=== PATIENT | male | born 1985 | race Caucasian/White ===

== ENCOUNTER 2019-10-12 12:29 | Emergency (ER) | payer OTHER ==
[~2019-10-12] VITALS: Ht 185.4 cm; Wt 97.7 kg
[2019-10-12] MEDS ORDERED: PENICILLIN V POTASSIUM 500 MG TABLET PO ONE (14:00)
[2019-10-12] MEDS ORDERED: KETOROLAC TROMETHAMINE 60 MG/2 ML VIAL IM ONE (14:00)
[2019-10-12 14:10] VITALS: BP 122/74
== END 2019-10-12 14:27 | disposition home or self-care (01) ==
LOC: EMS 12:31
DX: S02.5XXA Fracture of tooth (traumatic), initial encounter for closed fracture (principal); X58.XXXA Exposure to other specified factors, initial encounter; Y93.89 Activity, other specified; Y92.89 Other specified places as the place of occurrence of the external cause; Y99.8 Other external cause status
CPT/HCPCS: 96372; 99283; J1885

== ENCOUNTER 2022-01-10 14:47 | Emergency (ER) | payer OTHER ==
[~2022-01-10] VITALS: Ht 188 cm; Wt 93.2 kg
[2022-01-10 16:00] VITALS: BP 129/72
== END 2022-01-10 17:08 | disposition home or self-care (01) ==
LOC: EMS 14:47
DX: S00.93XA Contusion of unspecified part of head, initial encounter (principal); Z98.890 Other specified postprocedural states; W10.9XXA Fall (on) (from) unspecified stairs and steps, initial encounter; Y93.89 Activity, other specified; Y92.89 Other specified places as the place of occurrence of the external cause; Y99.8 Other external cause status
CPT/HCPCS: 70450; 99284